=== PATIENT | male | born 1945 | race Hispanic/Latino ===

== ENCOUNTER 2017-06-07 05:36 | Day surgery (SDC) | payer MEDICARE ==
[2017-06-05 09:55] VITALS: BP 136/64
[~2017-06-07] VITALS: Ht 160 cm; Wt 54.0 kg
[2017-06-07] VITALS (11 sets, daily range): BP systolic 121–158; BP diastolic 58–85
[~2017-06-07 05:36] MED LIST: ASPI-1181 PO; LOSA100T29 PO; OMEP40CA37 PO; PROP10TA10 PO; SUCR1TAB2 PO
[2017-06-07] MEDS ORDERED: GLYCOPYRROLATE 0.2 MG/ML 5 ML VIAL ONE (07:48)
[2017-06-07] MEDS ORDERED: ONDANSETRON HCL 4 MG/2 ML VIAL ONE (07:48)
[2017-06-07] MEDS ORDERED: FENTANYL CITRATE PF 50 MCG/1 ML 2ML VIAL ONE (07:48)
[2017-06-07] MEDS ORDERED: PROPOFOL 10 MG/ML 20ML VIAL IV ONE (07:48)
[2017-06-07] MEDS ORDERED: LIDOCAINE PF 2% 5ML ABBOJECT ONE (07:48)
[2017-06-07] MEDS ORDERED: SUCCINYLCHOLINE 200MG/10ML SYR ONE (07:48)
[2017-06-07] MEDS ORDERED: DEXAMETHASONE SOD PHOSPHATE 10MG/ML 1ML VIAL ONE (07:48)
[2017-06-07] MEDS ORDERED: MIDAZOLAM HCL 1 MG/ML 2ML VIAL ONE ×2 (07:48→09:29)
[2017-06-07] MEDS ORDERED: LACTATED RINGERS 1000ML 1,000 ML IV ONE (08:11)
[2017-06-07] MEDS ORDERED: CEFAZOLIN SODIUM 1 GM VIAL ONE (08:11)
[2017-06-07] MEDS ORDERED: LIDOCAINE HCL-MPF 0.5% 50ML VIAL IJ ONE (08:12)
[2017-06-07] MEDS ORDERED: EPINEPHRINE 1 MG/ML AMPULE ONE (09:51)
[2017-06-08] MEDS ORDERED: CEFAZOLIN SODIUM 1 GM VIAL IVP SCH (05:00)
== END 2017-06-07 11:35 | disposition home or self-care (01) ==
LOC: SUH 05:36 → DAH 05:36 → SUH 11:35
PROVIDERS: ATTEND Neurological Surgery
DX: G56.02 Carpal tunnel syndrome, left upper limb (principal); Z79.899 Other long term (current) drug therapy; F32.9 Major depressive disorder, single episode, unspecified; M19.90 Unspecified osteoarthritis, unspecified site; I10 Essential (primary) hypertension; K21.9 Gastro-esophageal reflux disease without esophagitis
CPT/HCPCS: 64721; 93005; A4218; J0171; J0330; J0690; J1100; J2001; J2250 ×2; J2405; J2704; J3010; J3490 ×2; J7120

== ENCOUNTER → 2018-06-29 | Outpatient (CLI) | payer MEDICARE ==
[~2018-06-29] MED LIST changes: -LOSA100T29 PO; +LOSA100T58 PO
== END | disposition home or self-care (01) ==
LOC: RAH 12:22
PROVIDERS: ATTEND Nurse Practitioner Family
DX: J84.10 Pulmonary fibrosis, unspecified (principal); I51.7 Cardiomegaly; M47.815 Spondylosis without myelopathy or radiculopathy, thoracolumbar region
CPT/HCPCS: 71046

== ENCOUNTER 2018-09-10 14:12 | Emergency (ER) | payer MEDICARE ==
[2018-09-10 15:08] LABS: INR 1.02 (0.85-1.15); PARTIAL THROMBOPLASTIN TIME 26.2 SEC (26.3-35.5); PROTHROMBIN TIME 10.7 SEC (9.6-11.6)
[2018-09-10 15:12] LABS: BASOPHILS % (AUTO) 0.7 % (0.0-5.0); HEMATOCRIT 36.9 % (42-54); LYMPHOCYTES % (AUTO) 17.9 % (21.0-51.0); MEAN CORPUSCULAR HGB CONC 33.1 g/dL (32.0-36.0); MEAN CORPUSCULAR VOLUME 90.7 fL (79-99); MONOCYTES % (AUTO) 8.9 % (3.0-13.0); NEUTROPHILS % (AUTO) 67.5 % (40.0-77.0); PLATELET COUNT (AUTO) 123 K/uL (130-400); RED BLOOD CELL COUNT(AUTO) 4.07 MIL/uL (4.50-6.20); RED CELL DISTRIBUTION WIDTH 14.9 % (11.0-15.5); WHITE BLOOD COUNT (AUTO) 6.2 K/uL (4.8-10.8)
== END 2018-09-10 15:54 | disposition home or self-care (01) ==
LOC: EDH 14:12
DX: S80.12XA Contusion of left lower leg, initial encounter (principal); R22.42 Localized swelling, mass and lump, left lower limb; I10 Essential (primary) hypertension; X58.XXXA Exposure to other specified factors, initial encounter; Y93.89 Activity, other specified; Y92.89 Other specified places as the place of occurrence of the external cause; Y99.8 Other external cause status
CPT/HCPCS: 36415; 73562; 80048; 85025; 85610; 85730; 93971

== ENCOUNTER 2020-11-19 08:00 | Observation (INO) | payer MEDICARE ==
[~2020-11-19] VITALS: Ht 162.6 cm; Wt 51.3 kg
[~2020-11-19 08:00] MED LIST changes: -ASPI-1181 PO; -OMEP40CA37 PO; -PROP10TA10 PO; -SUCR1TAB2 PO
[2020-11-19 11:19] LABS: CREATININE 1.4 mg/dL (0.5-1.5); POTASSIUM 4.4 mmol/L (3.5-5.1)
[2020-11-19 11:22] LABS: APPEARANCE,URINE Clear (CLEAR); BILIRUBIN,URINE Negative (NEGATIVE); COLOR,URINE Yellow (YELLOW); GLUCOSE, URINE (UA) Negative (NEGATIVE); KETONES,URINE Negative (NEGATIVE); LEUKOCYTE ESTERASE ,URINE Negative (NEGATIVE); NITRATE,URINE Negative (NEGATIVE); OCCULT BLOOD,URINE Negative (NEGATIVE); PH,URINE 5.5 (5.0-8.0); PROTEIN,URINE Negative (NEGATIVE)
[2020-11-19 11:22] LABS: BASOPHILS % (AUTO) 0.5 % (0.0-5.0); EOSINOPHILS % (AUTO) 3.9 % (0.0-8.0); LYMPHOCYTES % (AUTO) 23.5 % (21.0-51.0); MEAN CORPUSCULAR HEMOGLOBIN 29.1 pg (27.0-33.0); MEAN CORPUSCULAR HGB CONC 31.5 g/dL (32.0-36.0); MEAN CORPUSCULAR VOLUME 92.4 fL (79-99); MONOCYTES % (AUTO) 9.1 % (3.0-13.0); NEUTROPHILS % (AUTO) 62.7 % (40.0-77.0); PLATELET COUNT (AUTO) 132 K/uL (130-400); RED BLOOD CELL COUNT(AUTO) 4.22 MIL/uL (4.50-6.20); RED CELL DISTRIBUTION WIDTH 13.3 % (11.0-15.5); WHITE BLOOD COUNT (AUTO) 5.8 K/uL (4.8-10.8)
[2020-11-19 12:00] LABS: INR 1.04 (0.85-1.15); PROTHROMBIN TIME 11.3 SEC (9.6-11.6)
[2020-11-20 12:29] VITALS: BP 135/61
[2020-11-20] MEDS ORDERED: CARV12.511 PO (12:58)
[2020-11-20] MEDS ORDERED: FURO20TA4 PO (12:58)
[2020-11-20] MEDS ORDERED: AMLO-257 PO (12:58)
[2020-11-20] MEDS ORDERED: MECL-160 PO (12:58)
[2020-11-20] MEDS ORDERED: FLUO10CA23 PO (12:58)
[2020-11-20] MEDS ORDERED: ISOS30TA92 PO (12:58)
[2020-11-20] MEDS ORDERED: TRAM50TA4 PO (12:58)
[2020-11-20] MEDS ORDERED: OMEG-148 PO (12:58)
[2020-11-23] VITALS (17 sets, daily range): BP systolic 125–160; BP diastolic 49–79
[2020-11-23] MEDS: CEFAZOLIN SODIUM 1 GM VIAL IVP ONE ×2 (10:00→16:50)
[2020-11-23] MEDS ORDERED: CEFAZOLIN SODIUM 1 GM VIAL ONE ×2 (10:05→15:57)
[2020-11-23] MEDS ORDERED: LACTATED RINGERS 1000ML 1,000 ML IV ONE (10:05)
[2020-11-23] MEDS ORDERED: KETAMINE 50MG/ML SYRINGE 50 MG/ML DISP.SYRIN IV ONE (15:50)
[2020-11-23] MEDS ORDERED: ROPIVACAINE 0.5% 5MG/ML 30ML IJ ONE (15:52)
[2020-11-23] MEDS ORDERED: SUCCINYLCHOLINE CHLORIDE 20 MG/ML 10 ML VIAL ONE (15:53)
[2020-11-23] MEDS ORDERED: LIDOCAINE PF 100MG/5ML (2%) SYRINGE 5ML ONE (15:53)
[2020-11-23] MEDS ORDERED: PROPOFOL 10 MG/ML 20ML VIAL IV ONE (15:54)
[2020-11-23] MEDS ORDERED: ROCURONIUM 10MG/1ML SYR 10 MG/ML ML ONE (15:54)
[2020-11-23] MEDS ORDERED: TRANEXAMIC ACID 1000MG/10ML ONE ×2 (15:57→20:14)
[2020-11-23] MEDS ORDERED: EPHEDRINE SULFATE 50 MG/ML AMPULE ONE ×3 (16:53→19:29)
[2020-11-23] MEDS ORDERED: GLYCOPYRROLATE 1 MG/5 ML SYRINGE ONE (16:58)
[2020-11-23] MEDS ORDERED: PHENYLEPHRINE HCL 10 MG/ML 1ML VIAL IV ONE (19:14)
[2020-11-23] MEDS ORDERED: NEOSTIGMINE 5MG/5ML SYR IV ONE (19:30)
[2020-11-23] MEDS ORDERED: ONDANSETRON 4MG INJ ONE (19:32)
[2020-11-23] MEDS ORDERED: TRAMADOL HCL 50 MG TABLET PO PRN (20:00)
[2020-11-23] MEDS ORDERED: POTASSIUM CHLORIDE 10% ELIXIR 20 MEQ/15 ML UDCUP PO PRN (20:00)
[2020-11-23] MEDS ORDERED: TEMAZEPAM 15 MG CAPSULE PO PRN (20:00)
[2020-11-23] MEDS ORDERED: FE FUMARATE/FA/MV, MIN COMB#15 1 TAB PO PRN (20:00)
[2020-11-23] MEDS ORDERED: POTASSIUM CHLORIDE 20MEQ/100ML 100 ML IV PRN (20:00)
[2020-11-23] MEDS: 0.9%NACL 1000ML 1,000 ML IV SCH (20:00)
[2020-11-23] MEDS ORDERED: KETOROLAC 15MG/ML VIAL (15MG/ML) IV PRN (20:00)
[2020-11-23] MEDS ORDERED: LIDOCAINE HCL-MPF 1% 2ML VIAL IV PRN (20:00)
[2020-11-23] MEDS ORDERED: OXYCODONE HCL 5 MG TAB PO PRN (20:00)
[2020-11-23] MEDS ORDERED: KCL 20 MEQ ERTAB PO PRN (20:00)
[2020-11-23] MEDS ORDERED: ONDANSETRON 4MG INJ IVP PRN (20:00)
[2020-11-23] MEDS ORDERED: CALCIUM CARB 500MG PO PRN (20:00)
[2020-11-23] MEDS ORDERED: DiphenhydrAMINE HCL 50 MG/ML VIAL IVP PRN (20:00)
[2020-11-23] MEDS: ASPIRIN 81 MG EC TAB PO SCH (21:30)
[2020-11-23] MEDS: ACETAMINOPHEN 500 MG TABLET PO SCH (21:30)
[2020-11-23] MEDS: FAMOTIDINE 20MG TAB PO SCH (21:30)
[2020-11-23] MEDS: PREGABALIN 25 MG CAP PO SCH (21:30)
[2020-11-23] MEDS: CELECOXIB 200 MG CAP PO SCH (21:30)
[2020-11-24] VITALS (8 sets, daily range): BP systolic 117–156; BP diastolic 55–84
[2020-11-24] MEDS: CEFAZOLIN SODIUM 1 GM VIAL IVP SCH ×2 (01:12→08:13)
[2020-11-24] MEDS: OXYCODONE HCL 5 MG TAB PO PRN ×3 (03:48→12:09)
[2020-11-24] MEDS: ACETAMINOPHEN 500 MG TABLET PO SCH ×3 (03:49→20:29)
[2020-11-24 04:17] LABS: HEMATOCRIT 37.2 % (42-54); MEAN CORPUSCULAR HEMOGLOBIN 29.4 pg (27.0-33.0); MEAN CORPUSCULAR HGB CONC 32.5 g/dL (32.0-36.0); MEAN CORPUSCULAR VOLUME 90.3 fL (79-99); RED BLOOD CELL COUNT(AUTO) 4.12 MIL/uL (4.50-6.20); RED CELL DISTRIBUTION WIDTH 13.1 % (11.0-15.5); WHITE BLOOD COUNT (AUTO) 10.5 K/uL (4.8-10.8)
[2020-11-24 04:26] LABS: CREATININE 1.1 mg/dL (0.5-1.5); POTASSIUM 4.2 mmol/L (3.5-5.1)
[2020-11-24] MEDS: 0.9%NACL 1000ML 1,000 ML IV SCH ×2 (06:00→15:33)
[2020-11-24] MEDS ORDERED: MECLIZINE HCL 25 MG TABLET PO PRN (07:30)
[2020-11-24] MEDS: ASPIRIN 81 MG EC TAB PO SCH ×2 (08:10→20:29)
[2020-11-24] MEDS: FLUOXETINE HCL 10 MG CAPSULE PO SCH (08:10)
[2020-11-24] MEDS: PREGABALIN 25 MG CAP PO SCH ×2 (08:10→20:29)
[2020-11-24] MEDS: CELECOXIB 200 MG CAP PO SCH ×2 (08:10→20:29)
[2020-11-24] MEDS: TAMSULOSIN HCL 0.4 MG CAP.ER.24H PO SCH (08:10)
[2020-11-24] MEDS: FUROSEMIDE 20 MG TABLET PO SCH (08:10)
[2020-11-24] MEDS: LOSARTAN 100 MG TABLET PO SCH (08:11)
[2020-11-24] MEDS: FAMOTIDINE 20MG TAB PO SCH ×2 (08:11→20:29)
[2020-11-24] MEDS: POLYETHYLENE GLYCOL 3350 17 GM POWD.PACK PO SCH (08:12)
[2020-11-24] MEDS: CARVEDILOL 12.5 MG TABLET PO SCH ×2 (08:12→20:36)
[2020-11-24] MEDS ORDERED: FISH OIL 1000 MG/CAP PO SCH (21:00)
[2020-11-24] MEDS ORDERED: AMLODIPINE 5 MG TAB PO SCH (21:00)
[2020-11-24] MEDS ORDERED: ISOSORBIDE MONO 30MG SR TAB PO SCH (21:00)
[2020-11-25 03:44] VITALS: BP 147/74
[2020-11-25] MEDS: ACETAMINOPHEN 500 MG TABLET PO SCH ×2 (04:00→11:30)
[2020-11-25 08:00] VITALS: BP 126/65
[2020-11-25] MEDS: ASPIRIN 81 MG EC TAB PO SCH (08:00)
[2020-11-25] MEDS: FAMOTIDINE 20MG TAB PO SCH (08:00)
[2020-11-25] MEDS: PREGABALIN 25 MG CAP PO SCH (08:00)
[2020-11-25] MEDS: TAMSULOSIN HCL 0.4 MG CAP.ER.24H PO SCH (08:00)
[2020-11-25] MEDS: POLYETHYLENE GLYCOL 3350 17 GM POWD.PACK PO SCH (08:00)
[2020-11-25] MEDS: LOSARTAN 100 MG TABLET PO SCH (08:01)
[2020-11-25] MEDS: CELECOXIB 200 MG CAP PO SCH (08:01)
[2020-11-25] MEDS: FLUOXETINE HCL 10 MG CAPSULE PO SCH (08:01)
[2020-11-25] MEDS: FUROSEMIDE 20 MG TABLET PO SCH (08:01)
[2020-11-25] MEDS: CARVEDILOL 12.5 MG TABLET PO SCH (08:01)
[2020-11-25] MEDS: OXYCODONE HCL 5 MG TAB PO PRN (08:11)
[2020-11-25 11:45] VITALS: BP 78/44
[2020-11-25 13:11] VITALS: BP 100/44
[2020-11-25] MEDS ORDERED: HYDR-4060 PO (14:45)
[2020-11-25 16:00] VITALS: BP 130/60
[2020-11-26] MEDS ORDERED: BISACODYL 10 MG SUPP.RECT RC PRN (20:00)
== END 2020-11-25 17:45 | disposition home health service (06) ==
LOC: EDSTATUS 08:00 → DAHIP 11-23 09:22 → 4AH 11-23 21:06
PROVIDERS: ADMIT Orthopaedic Surgery; ATTEND Orthopaedic Surgery
DX: M75.102 Unspecified rotator cuff tear or rupture of left shoulder, not specified as traumatic (principal); Z20.822 Contact with and (suspected) exposure to COVID-19; G89.29 Other chronic pain; I10 Essential (primary) hypertension; M25.511 Pain in right shoulder; M19.012 Primary osteoarthritis, left shoulder; R11.2 Nausea with vomiting, unspecified; M25.512 Pain in left shoulder; E78.00 Pure hypercholesterolemia, unspecified; D64.9 Anemia, unspecified; Z87.891 Personal history of nicotine dependence; Z79.02 Long term (current) use of antithrombotics/antiplatelets; Z79.899 Other long term (current) drug therapy; Z98.890 Other specified postprocedural states
CPT/HCPCS: 23472; 36415 ×2; 73030; 80048 ×2; 81003; 82948; 85025; 85027; 85610; 87088; 87635; 87641; 88305; 88311; 96361 ×2; 96374; 96375; 96376; 97039 ×3; 97116 ×3; 97161; 97530 ×4; A4213; A4215; A4221; A4222; A4223; A4565; A4600; A4606; A4649 ×4; A4663; A4930 ×3; A5120; A6206; C1713; G0168; G0378 ×51; G8978; G8979; G8980; G8981; G8982; G8983; J0330; J0690 ×4; J1200; J1885; J2001; J2370; J2405 ×2; J2704; J2710; J2795; J3490 ×7; J7030; J7120 ×2; C1776

== ENCOUNTER 2023-12-26 06:38 | Observation (INO) | payer OTHER, MEDICARE ==
[2023-12-20 13:48] LABS: BASOPHILS # (AUTO) 0.06 K/uL (0.00-0.20); BASOPHILS % (AUTO) 0.9 % (0.0-5.0); EOSINOPHILS # (AUTO) 0.27 K/uL (0.00-0.70); EOSINOPHILS % (AUTO) 4.1 % (0.0-8.0); IMMATURE GRANULOCYTE ABSOLUTE 0.02 K/uL (0-1); LYMPHOCYTES # (AUTO) 2.4 K/uL (1.0-4.8); LYMPHOCYTES % (AUTO) 35.4 % (21.0-51.0); MEAN CORPUSCULAR HEMOGLOBIN 29.4 pg (27.0-33.0); MEAN CORPUSCULAR HGB CONC 31.5 g/dL (32.0-36.0); MEAN CORPUSCULAR VOLUME 93.3 fL (79-99); MONOCYTES # (AUTO) 0.6 K/uL (0.1-1.0); MONOCYTES % (AUTO) 9.5 % (3.0-13.0); NEUTROPHILS # (AUTO) 3.3 K/uL (1.8-7.7); NEUTROPHILS % (AUTO) 49.8 % (40.0-77.0); PLATELET COUNT (AUTO) 156 K/uL (130-400); RED BLOOD CELL COUNT(AUTO) 4.18 MIL/uL (4.50-6.20); RED CELL DISTRIBUTION WIDTH 13.2 % (11.0-15.5); WHITE BLOOD COUNT (AUTO) 6.6 K/uL (4.8-10.8)
[2023-12-20 14:02] LABS: CREATININE 1.4 mg/dL (0.5-1.3); POTASSIUM 4.8 mmol/L (3.5-5.1)
[2023-12-20 14:15] LABS: INR 1.01 (0.85-1.15); PROTHROMBIN TIME 10.9 SEC (9.6-11.6)
[2023-12-20 14:16] LABS: PARTIAL THROMBOPLASTIN TIME 28.2 SEC (26.3-35.5)
[2023-12-20 14:27] VITALS: BP 155/65; PULSE 52; RESP 17; TEMP 98
[2023-12-20 14:31] LABS: APPEARANCE,URINE CLEAR (CLEAR); BILIRUBIN,URINE NEGATIVE (NEGATIVE); COLOR,URINE LIGHT-YELLOW (YELLOW); GLUCOSE, URINE (UA) NEGATIVE (NEGATIVE); KETONES,URINE NEGATIVE (NEGATIVE); LEUKOCYTE ESTERASE ,URINE NEGATIVE Leu/uL (NEGATIVE); NITRATE,URINE NEGATIVE (NEGATIVE); OCCULT BLOOD,URINE NEGATIVE (NEGATIVE); PROTEIN,URINE NEGATIVE (NEGATIVE)
[2023-12-20 15:26] LABS: ADD UA MICROSCOPIC YES
[2023-12-20 15:33] LABS: RBC,URINE 0-1 /HPF (0-1); WBC,URINE 0-1 /HPF (0-1)
[~2023-12-26] VITALS: Ht 162.6 cm; Wt 54.2 kg
[2023-12-26] VITALS (28 sets, daily range): BP systolic 123–179; BP diastolic 51–122; PULSE 49–93; RESP 12–18; TEMP 97–98.3; O2SAT 97
[~2023-12-26 06:38] MED LIST changes: -LOSA100T58 PO; +LOSA100T59 PO; +METO-408 PO; +TRAM50TA4 PO
[2023-12-26] MEDS: LACTATED RINGERS 1000ML 1,000 ML IV ONE (07:46)
[2023-12-26] MEDS: ceFAZolin SODIUM 2 GM VIAL ONE (07:46)
[2023-12-26] MEDS ORDERED: TRANEXAMIC ACID 1000MG/10ML ONE (08:19)
[2023-12-26] MEDS ORDERED: ceFAZolin SODIUM 1 GM VIAL ONE ×2 (08:19→08:30)
[2023-12-26] MEDS: FAMOTIDINE 20MG VIAL IV ONE (10:40)
[2023-12-26] MEDS: acetaMINOPHEN 1,000 MG/100 ML VIAL IV ONE (10:40)
[2023-12-26] MEDS ORDERED: ROPivacaine 0.5% 5MG/ML 30ML ONE (10:44)
[2023-12-26] MEDS ORDERED: ketaMINE 50MG/ML SYRINGE 50 MG/ML DISP.SYRIN ONE (10:44)
[2023-12-26] MEDS ORDERED: proPOFol 10 MG/ML 20ML VIAL IV ONE (10:46)
[2023-12-26] MEDS ORDERED: LIDOCAINE PF 100MG/5ML (2%) SYRINGE 5ML ONE (10:46)
[2023-12-26] MEDS ORDERED: rocuRONium bROMide 10MG/1ML 5ML VL ONE ×2 (10:46→11:55)
[2023-12-26] MEDS ORDERED: FENTanyl CITRate PF 50 MCG/1 ML 2ML VIAL ONE (10:47)
[2023-12-26] MEDS: TRANEXAMIC ACID 1000MG/10ML ONE ×2 (11:15→15:16)
[2023-12-26] MEDS ORDERED: dexaMETHasone SOD PHOSPHATE 10MG/ML 1ML VIAL ONE (11:37)
[2023-12-26] MEDS ORDERED: ondanSETRON 4MG INJ ONE (11:37)
[2023-12-26] MEDS ORDERED: GLYCOPYRROLATE 0.2 MG/ML 5 ML VIAL ONE (11:38)
[2023-12-26] MEDS ORDERED: NEOSTIGMINE METHYLSULFATE 1MG/ML IV ONE (11:38)
[2023-12-26] MEDS ORDERED: ePHEDrine SULFate 50 MG/ML AMPULE ONE (11:57)
[2023-12-26] MEDS ORDERED: phenylEPHRINE HCL 10 MG/ML 1ML VIAL IV ONE (12:19)
[2023-12-26] MEDS ORDERED: DiphenhydrAMINE HCL 50 MG/ML VIAL IVP PRN (15:00)
[2023-12-26] MEDS ORDERED: ondanSETRON 4MG INJ IVP PRN (15:00)
[2023-12-26] MEDS ORDERED: PoTASSium chloRIDE 20MEQ ER 20 MEQ ERTAB PO PRN (15:00)
[2023-12-26] MEDS ORDERED: PoTASSium chloRIDE 20MEQ/100ML 100 ML IV PRN (15:00)
[2023-12-26] MEDS ORDERED: traMADol HCL 50 MG TABLET PO PRN ×2 (15:00→21:30)
[2023-12-26] MEDS ORDERED: PoTASSium chl 10% ELIXIR 20MEQ 20 MEQ/15 ML UDCUP PO PRN (15:00)
[2023-12-26] MEDS ORDERED: TEMAZepam 15 MG CAPSULE PO PRN (15:00)
[2023-12-26] MEDS ORDERED: FE FUMARATE/FA/MV, MIN COMB#15 1 TAB PO PRN (15:00)
[2023-12-26] MEDS: hydrALAZine 20MG/ML VIAL ONE (15:09)
[2023-12-26] MEDS: doCUSate SODIUM 100 MG CAP PO SCH (20:47)
[2023-12-26] MEDS: 0.9%NACL 1000ML 1,000 ML IV SCH (20:47)
[2023-12-26] MEDS: CeleCOXib 200 MG CAP PO SCH (20:47)
[2023-12-26] MEDS: ceFAZolin SODIUM 2 GM VIAL IVPB SCH (20:47)
[2023-12-26] MEDS ORDERED: BENZOCAINE/MENTH/CETYLPYRD CL 1 EACH LOZENGE MM PRN (21:38)
[2023-12-26] MEDS: metOPROLol sucCINATE 25 MG TAB.SR.24H PO SCH (22:59)
[2023-12-27] MEDS: ketOROlac 15MG/ML VIAL (15MG/ML) IV PRN (01:15)
[2023-12-27] MEDS: HYDROcodone/APAP 5/325 1 TAB TABLET PO PRN (04:10)
[2023-12-27 04:27] VITALS: BP 159/82; PULSE 69; RESP 17; TEMP 98.2
[2023-12-27 08:13] VITALS: BP 179/88; PULSE 62; RESP 20; TEMP 98.3
[2023-12-27] MEDS ORDERED: ASPI-1005 PO (08:28)
[2023-12-27] MEDS ORDERED: HYDR-4060 PO (08:28)
[2023-12-27] MEDS: ENOXAPARIN SODIUM 40 MG/0.4 ML SYRINGE SQ ONE ×2 (08:48→08:50)
[2023-12-27] MEDS: polyETHYLene GLYCol 3350 17 GM POWD.PACK PO SCH (08:49)
[2023-12-27] MEDS: LoSARTan 100 MG TABLET PO SCH (08:50)
[2023-12-27 11:54] VITALS: BP 156/89; PULSE 60; RESP 18; TEMP 98.3
[2023-12-27] MEDS ORDERED: metOPROLol sucCINATE 25 MG TAB.SR.24H PO SCH (21:00)
[2023-12-29] MEDS ORDERED: BisaCODYL 10 MG SUPP.RECT RC PRN (15:00)
== END 2023-12-27 14:30 | disposition home or self-care (01) ==
LOC: DAH 06:38 → DAHIP 06:39 → DAH 06:39 → 4AH 16:20
PROVIDERS: ADMIT Orthopaedic Surgery; ATTEND Orthopaedic Surgery
DX: M12.811 Other specific arthropathies, not elsewhere classified, right shoulder (principal); G89.29 Other chronic pain; I10 Essential (primary) hypertension; I35.0 Nonrheumatic aortic (valve) stenosis; Z86.2 Personal history of diseases of the blood and blood-forming organs and certain disorders involving the immune mechanism; Z79.899 Other long term (current) drug therapy; Z87.891 Personal history of nicotine dependence
CPT/HCPCS: 80048; 85025; 85610; 85730; 87086; 81001; 36415; 64415; 23472; 96365; 88311; 88304; 73030; 93005; 96376; 96372; 96366; 97161; 97116; 97530 ×2; G0378 ×21; C1776 ×4; C1713 ×3; C1768; A4663; J7120; J3490 ×9; J3010; J0690 ×5; J1100; J2001; J0360; J2704; J2405; J2710; J2795; J2371; A6206; A4649 ×3; A4930; A5120; A4215; A4223; A4222; A4221; J1650; J1885 ×2